=== PATIENT | female | born 1985 | race Caucasian/White ===

== ENCOUNTER 2017-02-10 02:47 | Emergency (ER) | payer BC ==
[~2017-02-10] VITALS: Ht 162.6 cm; Wt 90.7 kg
[2017-02-10 03:00] VITALS: BP_SYST 137
[2017-02-10] MEDS ORDERED: ONDANSETRON 4 MG ODT TAB PO ONE (03:45)
[2017-02-10] MEDS ORDERED: MECLIZINE HCL 25 MG TABLET (ANITVERT) PO ONE (03:45)
[2017-02-10 04:07] VITALS: BP_SYST 127
== END 2017-02-10 04:07 | disposition home or self-care (01) ==
LOC: SED 02:47
DX: H81.10 Benign paroxysmal vertigo, unspecified ear (principal)
CPT/HCPCS: 82962; 99283; J8597; Q0162